=== PATIENT | male | born 1960 | race African-American/Black ===

== ENCOUNTER 2017-09-19 22:01 | Emergency (ER) | payer BC, MEDICAID ==
[~2017-09-19] VITALS: Ht 170.2 cm; Wt 114.3 kg
[~2017-09-19 22:01] MED LIST: AMLODIPINE BESYL5 MG ORAL; ATORVASTATIN CA20 MG ORAL; BENAZEPRIL HCL40 MG ORAL; CYCLOBENZAPRINE10 MG ORAL; FOLIC ACID1 MG ORAL; GLUCOPHAGE850 MG ORAL; HYDROCHLOROTHIA25 MG ORAL
--- NOTE | 2017-09-19 22:49 | Emergency Room Report ---
History of Present Illness General Chief Complaint: General Complaint Source: Patient Present Illness HPI Is a 57-year-old male with history diabetes high blood pressure. He presents with chief complaint of increasing leg cramps the last for 5 days. Intermittently an episodic. He had this problem before but hasn't any problems since he been on soma. He was just started on hydrochlorothiazide and middle July. Also said he is feeling thirsty and been more. Denies any other complaint. No trauma. No pain right now. Allergies: Coded Allergies: No Known Allergies (Unverified , 12/21/14) Patient History Past Medical History: see triage record, old chart reviewed, HTN Past Surgical History: other Pertinent Family History: none Social History: Denies: smoking Immunizations: other Reviewed Nursing Documentation: PMH: Agreed, PSxH: Agreed Nursing Documentation-PMH Hx Cardiac Problems: Yes Hx Hypertension: Yes Hx Pacemaker: No Hx Asthma: No Hx COPD: No Hx Diabetes: Yes Hx Cancer: No Hx Gastrointestinal Problems: Yes Hx Dialysis: No Hx Neurological Problems: Yes - FELT WOOZY SINCE WEDNESDAY Hx Cerebrovascular Accident: No Hx Seizures: No Hx Dizziness: Yes Hx Weakness: Yes Review of Systems Eye: Denies: eye pain, blurred vision ENT: Denies: ear pain, nose congestion, throat swelling Respiratory: Denies: cough, shortness of breath Cardiovascular: Denies: chest pain, palpitations Gastrointestinal: Denies: abdominal pain, diarrhea, nausea, vomiting Musculoskeletal: Denies: back pain, joint pain Skin: Denies: rash Neurological: Denies: headache, numbness Endocrine: Denies: increased thirst, increased urine Hematologic/Lymphatic: Denies: easy bruising All Other Systems: negative except mentioned in HPI Physical Exam Vital Signs Date Time Temp Pulse Resp B/P (MAP) Pulse Ox O2 Delivery O2 Flow Rate FiO2 09/19/17 22:27 98.2 87 16 157/92 96 Room Air vitals with high blood pressure Sp02 EP Interpretation: reviewed, normal General Appearance: well appearing, no apparent distress, alert, obese Head: normocephalic, atraumatic Eyes: bilateral eye PERRL, bilateral eye EOMI ENT: hearing grossly normal, normal pharynx Neck: full range of motion, supple, no meningismus Respiratory: chest non-tender, lungs clear, normal breath sounds Cardiovascular #1: regular rate, rhythm, no murmur Gastrointestinal: normal bowel sounds, non tender, no mass, no organomegaly, no bruit, non-distended Musculoskeletal: back normal, gait/station normal, normal range of motion Psychiatric: mood/affect normal Skin: warm/dry Medical Decision Making Diagnostic Impression: Primary Impression: Hyperglycemia due to type 2 diabetes mellitus Qualified Codes: E11.65 - Type 2 diabetes mellitus with hyperglycemia Additional Impressions: Muscle cramps Obesity (BMI 30-39.9) ER Course This patient presents with muscle cramps. Most likely secondary to dehydration from uncontrolled diabetes. No evidence of DKA. Onset infection. Better after IV fluid and insulin. We'll discharge home. Patient claimed that his diabetes well controlled except for last few days because he's not watching what he ate and going to parties. He does not know his hemoglobin A1c. Lab Results Impression lab with high sugar Last Vital Signs Date Time Temp Pulse Resp B/P (MAP) Pulse Ox O2 Delivery O2 Flow Rate FiO2 09/19/17 22:27 98.2 87 16 157/92 96 Room Air Status: improved Disposition: HOME, SELF-CARE Condition: Stable Additional Instructions: Take your diabetes medicine. Followup your doctor in a week. You may need to be on insulin. Watch her diet. Return if symptom worsen. KENYATTA ASHFORD M.D. Sep 19, 2017 22:49
[2017-09-19 23:00] VITALS: BP 157/92
[2017-09-19 23:16] LABS: BASOPHILS % (AUTO) 1.2 % (0.0-2.0); EOSINOPHILS % (AUTO) 0.9 % (0.0-3.0); HEMATOCRIT 48.5 % (42.0-52.0); HEMOGLOBIN 15.7 G/DL (14.2-18.0); LYMPHOCYTES % (AUTO) 37.5 % (20.0-45.0); MEAN CORPUSCULAR VOLUME 83 FL (80-99); MONOCYTES % (AUTO) 9.2 % (1.0-10.0); NEUTROPHILS % (AUTO) 51.2 % (45.0-75.0); PLATELET COUNT 326 K/UL (150-450); RED BLOOD COUNT 5.83 M/UL (4.70-6.10); RED CELL DISTRIBUTION WIDTH 11.8 % (11.6-14.8); WHITE BLOOD COUNT 8.3 K/UL (4.8-10.8)
[2017-09-19 23:39] LABS: APPEARANCE,URINE CLEAR; BILIRUBIN, URINE NEGATIVE (NEGATIVE); COLOR,URINE PALE YELLOW; GLUCOSE, URINE (UA) 4+ (NEGATIVE); KETONES,URINE 1+ (NEGATIVE); LEUKOCYTE ESTERASE ,URINE NEGATIVE (NEGATIVE); NITRITE,URINE NEGATIVE (NEGATIVE); PH,URINE 5 (4.5-8.0); PROTEIN,URINE NEGATIVE (NEGATIVE); UROBILINOGEN,URINE NORMAL MG/DL (0.0-1.0)
[2017-09-19 23:43] LABS: ANION GAP 8 mmol/L (5-15); BLOOD UREA NITROGEN 24 mg/dL (7-18); CALCIUM 9.5 MG/DL (8.5-10.1); CARBON DIOXIDE 28 MMOL/L (21-32); CHLORIDE 93 MMOL/L (98-107); CREATININE 1.4 MG/DL (0.55-1.30); POTASSIUM 3.6 MMOL/L (3.5-5.1); SODIUM 129 MMOL/L (136-145)
[2017-09-20 02:10] VITALS: BP 134/73
[2017-09-20 02:15] VITALS: BP 157/92
== END 2017-09-20 02:11 | disposition home or self-care (01) ==
LOC: EMR 22:45
DX: E11.65 Type 2 diabetes mellitus with hyperglycemia (principal); R25.2 Cramp and spasm; E66.9 Obesity, unspecified; Z68.39 Body mass index [BMI] 39.0-39.9, adult; I10 Essential (primary) hypertension
CPT/HCPCS: 36415; 80048; 81001; 85025; 96361; 96374; 99284; J1815